=== PATIENT | female | born 2000 | race Caucasian/White ===

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

== ENCOUNTER 2019-04-16 23:31 | Emergency (ER) | payer BC ==
[~2019-04-16] VITALS: Ht 162.6 cm; Wt 47.6 kg
--- NOTE | 2019-04-17 00:10 | NUR ---
BIB FATHER FOR C/O HEADACHE X 3 DAYS. OCCASIONAL NAUSEA. AFEBRILE. VSS. PLACED ON A MONITOR . NO OTHER DEFICIT NOTED. NO WEAKNESS ON ANY SIDE OF THE BODY. WILL CONT TO MONITOR ,
[2019-04-17] MEDS ORDERED: KETOROLAC TROMETHAMINE INJ 30 MG/ML VIAL ONE (00:26)
[2019-04-17] MEDS ORDERED: diphenhydrAMINE HCL 50 MG/ML VIAL ONE (00:26)
[2019-04-17] MEDS ORDERED: METOCLOPRAMIDE HCL 10 MG/2 ML VIAL ONE (00:27)
[2019-04-17] MEDS ORDERED: IV NS 0.9% 1,000 ML BAG IV ONE (00:30)
[2019-04-17] MEDS ORDERED: diphenhydrAMINE HCL 50 MG/ML VIAL IV ONE (00:30)
[2019-04-17] MEDS ORDERED: KETOROLAC TROMETHAMINE INJ 30 MG/ML VIAL IV ONE (00:30)
[2019-04-17] MEDS ORDERED: METOCLOPRAMIDE HCL 10 MG/2 ML VIAL IV ONE (00:30)
--- NOTE | 2019-04-17 01:05 | NUR ---
Patient discharged to home in stable condition. Written and verbal after care instructions given. Patient/ father verbalizes understanding of instruction. pt was instructed not to drive. dad will provide the transpo. pt was cleared to D/C before finishing the whole IVF.
[2019-04-17 01:12] VITALS: BP 101/62
== END 2019-04-17 01:05 | disposition home or self-care (01) ==
LOC: ER 23:36
DX: G43.909 Migraine, unspecified, not intractable, without status migrainosus (principal); R42 Dizziness and giddiness
CPT/HCPCS: 96361; 96374; 96375; 99283; J1200; J1885; J2765; J7030

== ENCOUNTER 2019-10-10 08:37 | Emergency (ER) | payer BC ==
[~2019-10-10] VITALS: Ht 162.6 cm; Wt 44.9 kg
[2019-10-10 08:57] VITALS: BP 111/69
--- NOTE | 2019-10-10 09:27 | NUR ---
Pt awake alert nondistress. MD at bedside
--- NOTE | 2019-10-10 10:55 | NUR ---
Patient has Rt hand small finger blister open clean with saline and cover
--- NOTE | 2019-10-10 10:57 | NUR ---
Patient discharged to home in stable condition. Written and verbal after care instructions given. Patient verbalizes understanding of instruction.
--- NOTE | 2019-10-10 11:18 | NUR ---
Patient discharged to home in stable condition. Written and verbal after care instructions given. Patient verbalizes understanding of instruction.
== END 2019-10-10 11:20 | disposition home or self-care (01) ==
LOC: ER 08:38
DX: S63.8X1A Sprain of other part of right wrist and hand, initial encounter (principal); S60.416A Abrasion of right little finger, initial encounter; R51 Headache; V49.49XA Driver injured in collision with other motor vehicles in traffic accident, initial encounter; Y93.89 Activity, other specified; Y92.488 Other paved roadways as the place of occurrence of the external cause; Y99.8 Other external cause status
CPT/HCPCS: 73130-TC

== ENCOUNTER 2019-11-11 18:17 | Emergency (ER) | payer BC, MEDICAID ==
[~2019-11-11] VITALS: Ht 162.6 cm; Wt 45.4 kg
--- NOTE | 2019-11-11 18:40 | NUR ---
SYNCOPAL EPISODES X 3 TODAY,C/O HEADACHE. PATIENT A/OX4, BREATHING EVEN AND UNLABORED, NO SOB NOTED, NEEDS ATTENDED.
[2019-11-11 19:00] LABS: BASOPHILS % (AUTO) 0.3 % (0.0-2.0); HEMATOCRIT 39 % (33-45); HEMOGLOBIN 13.3 g/dL (11.5-14.8); LYMPHOCYTES # (AUTO) 2.4 /CMM (0.8-4.8); LYMPHOCYTES % (AUTO) 33.9 % (20.0-44.0); MEAN CORPUSCULAR HGB CONC 34 g/dl (31.0-36.0); MEAN CORPUSCULAR VOLUME 91 fL (82-100); MONOCYTES # (AUTO) 0.7 /CMM (0.1-1.30); MONOCYTES % (AUTO) 10.4 % (2.0-12.0); NEUTROPHILS # (AUTO) 3.8 /CMM (1.8-8.9); NEUTROPHILS % (AUTO) 54.4 % (43.0-81.0); PLATELET COUNT (AUTO) 223 /CMM (150-450); RED BLOOD CELL COUNT(AUTO) 4.32 MIL/uL (4.0-5.2)
[2019-11-11] MEDS ORDERED: IV NS 0.9% 1,000 ML BAG IV ONE (19:00)
[2019-11-11 19:09] LABS: CALCIUM, SERUM 8.9 mg/dL (8.5-10.1); CREATININE 0.8 mg/dL (0.6-1.3); POTASSIUM 4.1 mmol/L (3.5-5.1)
--- NOTE | 2019-11-11 19:26 | NUR ---
endorsed to anshu henry.
--- NOTE | 2019-11-11 19:27 | NUR ---
patient taken to ct.
[2019-11-11 20:08] VITALS: BP 108/76
== END 2019-11-11 20:08 | disposition home or self-care (01) ==
LOC: ER 18:19
DX: S00.83XA Contusion of other part of head, initial encounter (principal); E16.2 Hypoglycemia, unspecified; R55 Syncope and collapse; W18.39XA Other fall on same level, initial encounter; Y93.89 Activity, other specified; Y92.89 Other specified places as the place of occurrence of the external cause; Y99.8 Other external cause status
CPT/HCPCS: 36415; 70450; 71045; 80048; 82962; 84703; 85025; 93005; 96360; 99284; J7030

== ENCOUNTER 2020-01-16 23:59 | Emergency (ER) | payer BC, OTHER ==
[~2020-01-16] VITALS: Ht 162.6 cm; Wt 46.7 kg
[2020-01-17 00:29] VITALS: BP 110/73
--- NOTE | 2020-01-17 01:05 | NUR ---
PT CALLED TO ROOM, NO RESPONSE.
--- NOTE | 2020-01-17 01:15 | NUR ---
PT CALLED TO ROOM, NO RESPONSE.
== END 2020-01-17 01:15 | disposition left against medical advice (07) ==
LOC: ER 23:59
DX: R51 Headache (principal); Z53.21 Procedure and treatment not carried out due to patient leaving prior to being seen by health care provider

== ENCOUNTER 2020-06-29 16:39 | Emergency (ER) | payer BC ==
[~2020-06-29] VITALS: Ht 162.6 cm; Wt 45.4 kg
[2020-06-29] MEDS ORDERED: IV NS 0.9% 1,000 ML BAG IV ONE (17:00)
--- NOTE | 2020-06-29 17:03 | NUR ---
BIBD FROM HOME TO ER BED 16. AAOX4. NOT IN RESP DISTRESS. AMBUALTORY. CAME IN FOR LOWER ABDOMINAL PAIN AND VAGINAL BLEEDING X 4 DAYS. PER PT, LOWER ABD PAIN FEELS LIKE GRUMBLING AND BUBBLING SENSATION FOR THE PAST 4 DAY. PT ALSO REPORTS THAT HER VAGINAL BLEEDING IS UNUSUAL IN A WAY THAT SHE IS NOT EXPECTING HER PERIOD. PT DENIES TO BE NOT EXPECTING TO BE . MD MADE AWARE AND AWAITING FOR EVAL.
--- NOTE | 2020-06-29 17:05 | NUR ---
pt does not want to have an iv. made aware. pt will do blood draw
[2020-06-29 17:15] LABS: APPEARANCE,URINE Cloudy (CLEAR); BILIRUBIN,URINE Negative (NEGATIVE); BLOOD, URINE Moderate Ery/uL (NEGATIVE); COLOR,URINE Dark (YELLOW); KETONES,URINE Trace (NEGATIVE); LEUKOCYTE ESTERASE ,URINE Small (NEGATIVE); NITRITE, URINE Positive (NEGATIVE); PROTEIN,URINE 30 mg/dl (NEGATIVE); UGLUCOSE Negative (NEGATIVE)
[2020-06-29 17:18] LABS: BACTERIA,URINE Many /HPF (None Seen); RBC,URINE 0-2 /HPF (0-2); SQUAMOUS EPITHELIAL CELL,UR Many /HPF (None Seen)
[2020-06-29 17:25] LABS: BASOPHILS % (AUTO) 1.1 % (0.0-2.0); EOSINOPHILS % (AUTO) 2.4 % (0.0-6.0); HEMATOCRIT 37 % (33-45); HEMOGLOBIN 12.5 g/dL (11.5-14.8); LYMPHOCYTES % (AUTO) 47.5 % (20.0-44.0); MEAN CORPUSCULAR HGB CONC 33 g/dl (31.0-36.0); MEAN CORPUSCULAR VOLUME 92 fL (82-100); MONOCYTES # (AUTO) 0.4 /CMM (0.1-1.30); MONOCYTES % (AUTO) 9.4 % (2.0-12.0); NEUTROPHILS # (AUTO) 1.7 /CMM (1.8-8.9); NEUTROPHILS % (AUTO) 39.6 % (43.0-81.0); PLATELET COUNT (AUTO) 193 /CMM (150-450); RED BLOOD CELL COUNT(AUTO) 4.08 MIL/uL (4.0-5.2); WHITE BLOOD COUNT (AUTO) 4.3 K/uL (4.3-11.0)
[2020-06-29 17:33] LABS: CALCIUM, SERUM 9.3 mg/dL (8.5-10.1); CREATININE 0.7 mg/dL (0.6-1.3); POTASSIUM 4.1 mmol/L (3.5-5.1)
[2020-06-29 17:38] LABS: ALBUMIN 4.1 g/dL (3.4-5.0); BILIRUBIN,DIRECT 0.2 mg/dL (0.0-0.2); BILIRUBIN,TOTAL 0.8 mg/dL (0.2-1.0); TOTAL PROTEIN, SERUM 7.3 g/dL (6.4-8.2)
--- NOTE | 2020-06-29 18:28 | NUR ---
Patient discharged to home in stable condition. Written and verbal after care instructions given. Patient verbalizes understanding of instruction. Pt ambulatory with a steady gait
[2020-06-29 18:29] VITALS: BP 102/57
== END 2020-06-29 18:29 | disposition home or self-care (01) ==
LOC: ER 16:41
DX: N39.0 Urinary tract infection, site not specified (principal)
CPT/HCPCS: 36415; 76856-TC; 80048-TC; 80076-TC; 81000-TC; 83690-TC; 84702-TC; 84703-TC; 85025-TC; 87086-TC; 87186-TC; J7030

== ENCOUNTER 2020-08-02 21:23 | Emergency (ER) | payer BC ==
[~2020-08-02] VITALS: Ht 162.6 cm; Wt 40.4 kg
--- NOTE | 2020-08-02 21:54 | NUR ---
PATIENT CAME TO ER BED 10 C/O LEFT LOWER QUADRANT ABDOMINAL PAIN 1x MONTH. PATIENT STATES THAT SHE IS HAVING VAGINAL BLEEDING WELL. PATIENT STATES THAT SHE LOST 6LBS OVER A WEEK WITHOUT HAVING A CHANGE OF DIET. PATIENT IS AAOX4. NO SOB. BREATHING EVENLY AND UNLABORED ON ROOM AIR. CONNECTED TO THE MONITOR.
--- NOTE | 2020-08-02 21:59 | NUR ---
urine collected and sent to lab.
--- NOTE | 2020-08-02 22:31 | NUR ---
DRESSMAKER OR TAILOR AT BEDSIDE FOR EKG
[2020-08-02 22:40] LABS: BASOPHILS # (AUTO) 0.1 /CMM (0.0-0.2); BASOPHILS % (AUTO) 0.8 % (0.0-2.0); EOSINOPHILS % (AUTO) 0.9 % (0.0-6.0); HEMATOCRIT 38 % (33-45); HEMOGLOBIN 12.7 g/dL (11.5-14.8); LYMPHOCYTES # (AUTO) 2.5 /CMM (0.8-4.8); LYMPHOCYTES % (AUTO) 40.4 % (20.0-44.0); MEAN CORPUSCULAR HGB CONC 34 g/dl (31.0-36.0); MEAN CORPUSCULAR VOLUME 91 fL (82-100); MONOCYTES # (AUTO) 0.5 /CMM (0.1-1.30); MONOCYTES % (AUTO) 7.4 % (2.0-12.0); NEUTROPHILS # (AUTO) 3.1 /CMM (1.8-8.9); NEUTROPHILS % (AUTO) 50.5 % (43.0-81.0); PLATELET COUNT (AUTO) 228 /CMM (150-450); RED BLOOD CELL COUNT(AUTO) 4.17 MIL/uL (4.0-5.2); WHITE BLOOD COUNT (AUTO) 6.1 K/uL (4.3-11.0)
--- NOTE | 2020-08-02 23:22 | NUR ---
US AT BEDSIDE.
[2020-08-03 00:24] VITALS: BP 128/68
--- NOTE | 2020-08-03 00:24 | NUR ---
Patient discharged to home in stable condition. Written and verbal after care instructions given. Patient verbalizes understanding of instruction. Pt ambulated with steady gait.vss.
== END 2020-08-03 00:24 | disposition home or self-care (01) ==
LOC: ER 21:26
DX: N93.8 Other specified abnormal uterine and vaginal bleeding (principal); R51 Headache
CPT/HCPCS: 36415; 76856-TC; 84703-TC; 85025-TC

== ENCOUNTER 2024-10-27 19:45 | Emergency (ER) | payer BC ==
[~2024-10-27] VITALS: Ht 162.6 cm; Wt 44.5 kg
[2024-10-27] MEDS: IV NS 0.9% 1,000 ML BAG IV ONE (20:00)
[2024-10-27] MEDS: ONDANSETRON HCL/PF 4 MG/2 ML VIAL IVP ONE (20:00)
[2024-10-27] MEDS: KETOROLAC TROMETHAMINE 15 MG/ML VIAL IV ONE (20:00)
[2024-10-27] MEDS ORDERED: KETOROLAC TROMETHAMINE 15 MG/ML VIAL ONE (20:09)
[2024-10-27] MEDS ORDERED: ONDANSETRON HCL/PF 4 MG/2 ML VIAL ONE (20:09)
[2024-10-27 20:24] LABS: BASOPHILS % (AUTO) 0.4 % (0.0-2.0); EOSINOPHILS % (AUTO) 0.1 % (0.0-6.0); HEMATOCRIT 35 % (33-45); HEMOGLOBIN 12.1 g/dL (11.5-14.8); LYMPHOCYTES # (AUTO) 1.8 K/uL (0.8-4.8); LYMPHOCYTES % (AUTO) 22.1 % (20.0-44.0); MEAN CORPUSCULAR HEMOGLOBIN 32 PG (26.0-33.0); MEAN CORPUSCULAR HGB CONC 35 g/dl (31.0-36.0); MEAN CORPUSCULAR VOLUME 91 fL (82-100); MONOCYTES # (AUTO) 0.7 K/uL (0.1-1.30); MONOCYTES % (AUTO) 8.4 % (2.0-12.0); NEUTROPHILS # (AUTO) 5.6 K/uL (1.8-8.9); PLATELET COUNT (AUTO) 192 K/uL (150-450); RED BLOOD CELL COUNT(AUTO) 3.84 MIL/uL (4.0-5.2); RED CELL DISTRIBUTION WIDTH 12.8 % (11.5-15.0); WHITE BLOOD COUNT (AUTO) 8.1 K/uL (4.3-11.0)
[2024-10-27 20:25] LABS: CALCIUM, SERUM 9.2 mg/dL (8.5-10.1); CREATININE 0.8 mg/dL (0.6-1.3); POTASSIUM 3.4 mmol/L (3.5-5.1)
[2024-10-27 20:31] LABS: ALBUMIN 4.2 g/dL (3.4-5.0); BILIRUBIN,DIRECT 0.2 mg/dL (0.0-0.2); BILIRUBIN,TOTAL 0.6 mg/dL (0.2-1.0); TOTAL PROTEIN, SERUM 7.3 g/dL (6.4-8.2)
[2024-10-27] MEDS ORDERED: CT SWABBABLE VALVE TRANS SET 1 EA INFUS.SET MC ONE (21:39)
[2024-10-27] MEDS ORDERED: IV NS 0.9% 250 ML IV ONE (21:39)
[2024-10-27] MEDS ORDERED: IOHEXOL-300 100 ML VIAL IV ONE (21:39)
[2024-10-27 22:45] VITALS: BP 109/69; TEMP 98.6; O2SAT 98
== END 2024-10-27 22:45 | disposition home or self-care (01) ==
LOC: ER 19:46
DX: N94.6 Dysmenorrhea, unspecified (principal); R10.30 Lower abdominal pain, unspecified; R11.2 Nausea with vomiting, unspecified; R10.2 Pelvic and perineal pain
CPT/HCPCS: 99285; 74177; 96374; 96361; 96375; 85025; 80048; 83690; 80076; 36415; 84702; J2405; J7030; J7050; Q9967; J1885